=== PATIENT | female | born 1975 | race Caucasian/White ===

== ENCOUNTER 2024-03-02 06:23 | Day surgery (SDC) | payer OTHER ==
[~2024-03-02] VITALS: Ht 152.4 cm; Wt 64.4 kg
[2024-03-02] MEDS ORDERED: fentaNYL citrate 0.05 MG/ML VIAL ONE (07:35)
[2024-03-02] MEDS ORDERED: MIDAZOLAM 2 MG/2 ML VIAL ONE (07:37)
[2024-03-02] MEDS: MIDAZOLAM 2 MG/2 ML VIAL IVP ONE (07:52)
[2024-03-02] MEDS: fentaNYL citrate 0.05 MG/ML VIAL IVP ONE (07:53)
[2024-03-02] MEDS: LIDOCAINE 2% 100 MG/5 ML UJET TP ONE (08:08)
== END 2024-03-02 09:48 | disposition home or self-care (01) ==
LOC: MDS 06:23 → MMU 06:34 → MDS 09:40
PROVIDERS: ATTEND Internal Medicine Gastroenterology
DX: Z12.11 Encounter for screening for malignant neoplasm of colon (principal); K63.5 Polyp of colon; R10.13 Epigastric pain; M06.9 Rheumatoid arthritis, unspecified; Z79.899 Other long term (current) drug therapy
CPT/HCPCS: 36415; 43239; 45385; 86677; J2250; J3010